=== PATIENT | male | born 1990 | race Caucasian/White ===

== ENCOUNTER → 2020-06-03 | Outpatient (CLI) | payer OTHER ==
--- NOTE | 2020-06-03 18:22 | RAD ---
LUMBAR SPINE MIN 4V History: Reason: Severe lower back pain today HX: intermittent in the past / Spl. Instructions: / History: Technique: 5 views of the lumbar spine. Comparison: None. Findings: Transitional lumbosacral anatomy with lumbarization of S1. Minimal retrolisthesis L5 on S1. Mild degenerative disc changes L5-S1. Normal vertebral height. No fracture. Impression: 1. No acute osseous abnormality. 2. Mild L5 on S1 retrolisthesis with associated spondylosis. Electronically signed by: Rico Carney DO (06/03/2020 6:19 PM) [facility]
== END | disposition home or self-care (01) ==
LOC: DXRAD 17:45
PROVIDERS: ATTEND Physician Assistant
DX: M51.17 Intervertebral disc disorders with radiculopathy, lumbosacral region (principal); M47.27 Other spondylosis with radiculopathy, lumbosacral region
CPT/HCPCS: 72110